=== PATIENT | male | born 1960 | race Caucasian/White ===

== ENCOUNTER 2018-09-04 11:58 | Emergency (ER) | payer OTHER ==
[~2018-09-04] VITALS: Ht 167.6 cm; Wt 88.8 kg
[2018-09-04 12:24] VITALS: BP 134/85; PULSE 62; RESP 18; Ht 167.6 cm; Wt 88.8 kg
--- NOTE | 2018-09-04 14:19 | ERD ---
ER Documentation Chief Complaint Chief Complaint cyst base of thumb x1mth, bleeding x1wk, getting bigger HPI Patient is a 57-year-old male with no medical problems who presents with a right hand ulcer. He said that it has been bleeding off and on. It started greater than 1 month ago. He has mild pain. He has had no treatment as of yet. ROS All systems reviewed and are negative except as per history of present illness. PMhx/Soc Medical and Surgical Hx: pt denies Medical Hx, pt denies Surgical Hx Hx Alcohol Use: No Hx Substance Use: No Hx Tobacco Use: No Smoking Status: Never smoker FmHx Family History: diabetes Physical Exam Vitals Vital Signs Date Temp Pulse Resp B/P (MAP) Pulse Ox O2 O2 Flow FiO2 Time Delivery Rate 09/04/18 97.9 62 18 134/85 97 12:24 (101) Physical Exam Const: No acute distress Head: Atraumatic Eyes: Normal Conjunctiva ENT: Normal External Ears, Nose and Mouth. Neck: Full range of motion. No meningismus. Resp: Clear to auscultation bilaterally Cardio: Regular rate and rhythm, no murmurs Abd: Soft, non tender, non distended. Normal bowel sounds Skin: 1cm By 1 cm bowie--like appearance over the right thumb consistent with a pyogenic granuloma Back: No midline or flank tenderness Ext: No cyanosis, or edema Neur: Awake and alert Psych: Normal Mood and Affect Procedures/MDM Patient is a 57-year-old male who presents with what appears to be a right-sided pyogenic granuloma. The patient will be discharged and given information for Dr. Langston from hand surgery. The patient can return for any worsening symptoms. I do not believe the treatment in the ER would be appropriate as this would most likely continue to bleed without a formal resection. Given the location resection by a hand surgeon would be appropriate. Departure Diagnosis: Primary Impression: Pyogenic granuloma Condition: Fair Patient Instructions: Pyogenic Granuloma Referrals: DIMPLE LANGSTON MD Additional Instructions: Specialist:Usted tiene tita condicin mdica que requiere que amena a un especialista dentro de los prximos 1-2 joseph.POR FAVOR,CON [place] SEGUIMIENTO DE PRIMARIA PHSICIAN refferal. SI USTED NO TIENE UN MDICO GENERAL Y / O USTED NO PUEDE PAGAR jose a un mdico,los siguientes bridges RECURSOS sido suministrado a usted. ES [place] RESPONSABILIDAD PARA SER VISTOS POR EL ESPECIALISTA: CARY ENNIS MD Sep 04, 2018 14:19
== END 2018-09-04 13:13 | disposition home or self-care (01) ==
LOC: FTE 11:58
DX: L98.0 Pyogenic granuloma (principal)
CPT/HCPCS: 99282